=== PATIENT | male | born 1990 | race Two or more races ===

== ENCOUNTER 2021-05-07 21:51 | Emergency (ER) | payer MEDICAID, OTHER ==
[~2021-05-07] VITALS: Ht 177.8 cm; Wt 99.8 kg
[2021-05-07] MEDS ORDERED: TETANUS-DIPTH-ACEL PERTUSSIS 0.5ML SYR Tdap IM ONE (22:00)
[2021-05-07] MEDS ORDERED: BACITRACIN TOP OINT 1 UD PKG TOP ONE (23:00)
[2021-05-07] MEDS ORDERED: HYDROcodone-ACET 5/325MG TAB PO ONE (23:00)
[2021-05-07] MEDS ORDERED: LIDOCAINE 2%HCL (LOCAL ANESTH.) INJ 10ml MDV IJ ONE (23:00)
[2021-05-07] MEDS ORDERED: LIDOCAINE 1% HCL (LOCAL ANESTH.) INJ 20ML MDV ID ONE (23:30)
[2021-05-08 01:28] VITALS: BP 135/99
== END 2021-05-08 01:41 | disposition home or self-care (01) ==
LOC: ER 21:52
DX: S51.812A Laceration without foreign body of left forearm, initial encounter (principal); Y08.89XA Assault by other specified means, initial encounter; Y93.89 Activity, other specified; Y92.89 Other specified places as the place of occurrence of the external cause; Y99.8 Other external cause status
CPT/HCPCS: 12001; 73090; 73130; 90471; 90715; 99284; J2001